=== PATIENT | male | born 1995 | race Caucasian/White ===

== ENCOUNTER 2025-05-17 13:54 | Emergency (ER) | payer SELFPAY ==
[~2025-05-17] VITALS: Ht 193 cm; Wt 95.3 kg
[2025-05-17 13:55] VITALS: BP 140/79
[2025-05-17 14:38] LABS: PLATELET COUNT (AUTO) 294 K/uL (152-348); RED BLOOD CELL COUNT(AUTO) 5.13 MIL/uL (4.06-5.63); RED CELL DISTRIBUTION WIDTH 12.8 % (12.1-16.2); WHITE BLOOD COUNT (AUTO) 9.3 K/uL (3.6-10.2)
[2025-05-17 14:46] LABS: CREATININE 1.0 mg/dL (0.6-1.3); SODIUM SERUM 143 mmol/L (136-145); UREA NITROGEN, BLOOD 16 mg/dL (7-18)
[2025-05-17 14:51] LABS: ASPARTATE AMINOTRANSFERASE 24 U/L (15-37); TOTAL PROTEIN, SERUM 7.7 g/dL (6.4-8.2)
[2025-05-17 15:36] VITALS: BP 133/80; O2SAT 99
== END 2025-05-17 15:36 | disposition home or self-care (01) ==
LOC: ER 13:54
DX: S06.0X0A Concussion without loss of consciousness, initial encounter (principal); S29.9XXA Unspecified injury of thorax, initial encounter; R06.02 Shortness of breath; Z86.2 Personal history of diseases of the blood and blood-forming organs and certain disorders involving the immune mechanism; V89.2XXA Person injured in unspecified motor-vehicle accident, traffic, initial encounter; Y93.89 Activity, other specified; Y92.410 Unspecified street and highway as the place of occurrence of the external cause; Y99.9 Unspecified external cause status
CPT/HCPCS: 36415; 70450; 71250; 72125; 84484; 85025; 85730; A4606; A4663